=== PATIENT | female | born 1940 | race Caucasian/White ===

== ENCOUNTER 2022-08-30 12:55 | Emergency (ER) | payer MEDICARE, BC ==
[2022-08-30 13:36] LABS: ESTIMATED GFR 45 mL/min (>60)
[2022-08-30 13:58] LABS: CORONAVIRUS COVID-19 NAA NEGATIVE (NEGATIVE)
== END 2022-08-30 14:50 | disposition home or self-care (01) ==
LOC: FB.ED 12:55
DX: E11.9 Type 2 diabetes mellitus without complications (principal); Z79.4 Long term (current) use of insulin; Z20.822 Contact with and (suspected) exposure to COVID-19
CPT/HCPCS: 0241U; 36415; 80053; 81001; 83036; 83605; 85025; 86140; 87086; 87088; 87186; 93005; 99284